=== PATIENT | male | born 1965 | race Caucasian/White ===

== ENCOUNTER 2017-08-18 10:20 | Emergency (ER) | payer MEDICAID ==
[~2017-08-18] VITALS: Ht 185.4 cm; Wt 109.0 kg
[2017-08-18] MEDS ORDERED: OMEP40CA34 PO (10:51)
[2017-08-18] MEDS ORDERED: WARF6TAB22 PO (10:51)
[2017-08-18] MEDS ORDERED: FLUO60TA PO (10:51)
[2017-08-18] MEDS ORDERED: AMLO10TA80 PO (10:51)
[2017-08-18] MEDS ORDERED: ALD50 PO (10:51)
[2017-08-18 13:13] VITALS: BP 130/97
[2017-08-18] MEDS: TETRACAINE 0.5% OPHTH DROPS 4ML RIGHTEYE ONE (13:39)
[2017-08-18] MEDS: FLUORESCEIN SODIUM 1MG/STRIP LEFTEYE ONE (13:39)
[2017-08-18 14:02] LABS: BASOPHILS % 0.4 % (0.0-2.0); EOSINOPHILS % 4.6 % (0.0-5.0); HEMATOCRIT. 39.3 % (42.0-52.0); HEMOGLOBIN. 13.2 g/dL (14.0-18.0); LYMPHOCYTES % 22.4 % (20.0-50.0); MEAN CORPUSCULAR HEMOGLOBIN 29.9 pg (28.0-32.0); MEAN CORPUSCULAR VOLUME 88.9 fL (80.0-94.0); MEAN PLATELET VOLUME 7.9 fl (7.4-10.4); MONOCYTES % 8.8 % (2.0-8.0); NEUTROPHILS % 63.8 % (40.0-76.0); PLATELET 70 x1000/uL (130-400); RED BLOOD CELL COUNT 4.42 mill/uL (4.7-6.1)
[2017-08-18 14:09] LABS: CHLORIDE 107 mEq/L (98-107)
[2017-08-18 14:12] LABS: INR 1.5; PARTIAL THROMBOPLASTIN TIME 31.5 sec (23.4-31.0); PROTHROMBIN TIME 15.1 sec (9.4-11.6)
[2017-08-18 14:17] LABS: CARBON DIOXIDE 27 mEq/L (21-32)
== END 2017-08-18 15:24 | disposition home or self-care (01) ==
LOC: ER 10:53 → CANBEDREQ 18:48
DX: H11.32 Conjunctival hemorrhage, left eye (principal); R79.1 Abnormal coagulation profile; I48.91 Unspecified atrial fibrillation; I10 Essential (primary) hypertension; G47.30 Sleep apnea, unspecified; Z90.49 Acquired absence of other specified parts of digestive tract; Z98.890 Other specified postprocedural states; Z79.01 Long term (current) use of anticoagulants
CPT/HCPCS: 36415; 71010; 80048; 85025; 85610; 85730; 86850; 86900; 93005; 99285